=== PATIENT | female | born 2000 | race Caucasian/White ===

== ENCOUNTER → 2021-10-21 | Outpatient (CLI) | payer OTHER, SELFPAY ==
[2021-10-21 12:05] LABS: Vista UDS pH Range 4
[2021-10-21 12:29] LABS: Amphetamine Urine VISTA NEGATIVE (<1000 ng/mL); Barbiturate Urine VISTA NEGATIVE (< 200 ng/mL); Benzodiazepine Urine VISTA NEGATIVE (< 200 ng/mL); Cocaine Urine VISTA NEGATIVE (< 300 ng/mL); Ecstacy Urine VISTA NEGATIVE (< 500 ng/mL); Methadone Urine VISTA NEGATIVE (< 300 ng/mL); PCP Urine VISTA NEGATIVE (< 25 ng/mL); THC Urine VISTA NEGATIVE (< 50 ng/mL)
[2021-10-22 22:06] LABS: Chlamydia By Nucleic Acid AMP Negative (Negative)
[2021-10-22 22:33] LABS: Gonococcus By Nucleic Acid AMP Negative (Negative)
== END | disposition home or self-care (01) ==
LOC: LABSPEC 11:30
PROVIDERS: Visit Provider Obstetrics & Gynecology
DX: Z34.00 Encounter for supervision of normal first pregnancy, unspecified trimester (principal)
CPT/HCPCS: 80307; 87086; 87491; 87591

== ENCOUNTER → 2021-10-25 | Outpatient (CLI) | payer OTHER, SELFPAY ==
[2021-10-25 11:26] LABS: Absolute Lymphocyte Count 1.83 X10^3/uL (0.83-4.51); Absolute Neutrophil Count 3.2 X10^3/uL (2.0-7.7); Basophil# 0.03 X10^3/uL; Basophil% 0.5 % (0-1); Eosinophil# 0.13 X10^3/uL; Eosinophils% 2.3 % (0-5); Hematocrit 37.8 % (37-47); Hemoglobin 12.9 g/dL (12.0-15.0); Lymphocyte # 1.83 X10^3/ul (0.83-4.51); Lymphocyte % 32.6 % (19-41); Mean Corp Hgb Conc 34.1 g/dL (32-36); Mean Corpuscular Hgb 30.9 pg (27.0-32.0); Mean Corpuscular Volume 90.4 fL (81-99); Mean Platelet Vol. 10.1 fl (6.2-12.0); Monocyte# 0.45 X10^3/uL; NRBC Flagged by Analyzer 0 % (0-5); Neutrophil # 3.16 X10^3/uL (2.7-7.7); Neutrophil % 56.2 % (47-70); Platelet Count 255 K/mm3 (150-450); RBC Distribution Width CV 12.6 % (11.6-14.6); Red Blood Count 4.18 M/mm3 (4.2-5.4); White Blood Count 5.6 K/mm3 (4.4-11.0)
[2021-10-25 12:04] LABS: NATERA MAILED SPECIMEN
[2021-10-25 12:26] LABS: HIV - WCH Non-Reactive (Nonreactive); Hepatitis B Surface Antigen Non-Reactive (Nonreactive); Hepatitis C Antibody Non-Reactive (Nonreactive); Rubella IgG Reactive (Nonreactive); Syphilis Antibodies Non-reactive
== END | disposition home or self-care (01) ==
LOC: LAB 10:59
PROVIDERS: Referring Provider Obstetrics & Gynecology; Visit Provider Obstetrics & Gynecology
DX: Z34.00 Encounter for supervision of normal first pregnancy, unspecified trimester (principal)
CPT/HCPCS: 36415; 85025; 86703; 86762; 86780; 86803; 86850; 86900; 86901; 87340

== ENCOUNTER → 2022-02-11 | Outpatient (CLI) | payer OTHER, SELFPAY ==
[2022-02-11 11:41] LABS: Absolute Lymphocyte Count 1.81 X10^3/uL (0.83-4.51); Absolute Neutrophil Count 7.8 X10^3/uL (2.0-7.7); Basophil# 0.03 X10^3/uL; Basophil% 0.3 % (0-1); Eosinophil# 0.06 X10^3/uL; Eosinophils% 0.6 % (0-5); Hematocrit 33.5 % (37-47); Hemoglobin 11.7 g/dL (12.0-15.0); Lymphocyte # 1.81 X10^3/ul (0.83-4.51); Lymphocyte % 17.2 % (19-41); Mean Corp Hgb Conc 34.9 g/dL (32-36); Mean Corpuscular Hgb 31.8 pg (27.0-32.0); Mean Platelet Vol. 10.4 fl (6.2-12.0); Monocyte# 0.78 X10^3/uL; Monocyte% 7.4 % (0-10); NRBC Flagged by Analyzer 0 % (0-5); Neutrophil # 7.78 X10^3/uL (2.7-7.7); Platelet Count 219 K/mm3 (150-450); RBC Distribution Width CV 12.9 % (11.6-14.6); RBC Distribution Width SD 42.2 fl (35.1-43.9); Red Blood Count 3.68 M/mm3 (4.2-5.4); White Blood Count 10.5 K/mm3 (4.4-11.0)
[2022-02-11 12:00] LABS: Glucose Challenge Gest 1H 50g 83 mg/dL (70-140)
== END | disposition home or self-care (01) ==
LOC: LAB 11:20
PROVIDERS: Visit Provider Obstetrics & Gynecology
DX: Z34.00 Encounter for supervision of normal first pregnancy, unspecified trimester (principal)
CPT/HCPCS: 36415; 82950; 85025

== ENCOUNTER → 2022-04-25 | Outpatient (CLI) | payer OTHER, SELFPAY | END | disposition home or self-care (01) | PROVIDERS: Visit Provider Registered Nurse | DX: Z34.00 Encounter for supervision of normal first pregnancy, unspecified trimester (principal) | CPT/HCPCS: 87081 ==

== ENCOUNTER 2022-05-20 05:35 | Inpatient (IN) | payer OTHER, SELFPAY ==
[2022-05-20] VITALS (51 sets, daily range): BP systolic 106–162; BP diastolic 56–90; PULSE 65–248; TEMP 36.6–37.6; O2SAT 80–100; BMI 33.0
[2022-05-20] MEDS: Lactated Ringers 1,000 ML 50 ML IV (05:50)
[2022-05-20 06:12] LABS: Absolute Lymphocyte Count 2.16 X10^3/uL (0.83-4.51); Absolute Neutrophil Count 9.9 X10^3/uL (2.0-7.7); Basophil# 0.05 X10^3/uL; Basophil% 0.4 % (0-1); Eosinophil# 0.02 X10^3/uL; Eosinophils% 0.2 % (0-5); Hematocrit 35.1 % (37-47); Hemoglobin 11.4 g/dL (12.0-15.0); Lymphocyte # 2.16 X10^3/ul (0.83-4.51); Lymphocyte % 16.3 % (19-41); Mean Corp Hgb Conc 32.5 g/dL (32-36); Mean Corpuscular Hgb 28.4 pg (27.0-32.0); Mean Corpuscular Volume 87.3 fL (81-99); Mean Platelet Vol. 11.6 fl (6.2-12.0); Monocyte# 1.02 X10^3/uL; Monocyte% 7.7 % (0-10); NRBC Flagged by Analyzer 0 % (0-5); Neutrophil # 9.88 X10^3/uL (2.7-7.7); Neutrophil % 74.7 % (47-70); Platelet Count 218 K/mm3 (150-450); RBC Distribution Width CV 13.5 % (11.6-14.6); RBC Distribution Width SD 42.3 fl (35.1-43.9); Red Blood Count 4.02 M/mm3 (4.2-5.4); White Blood Count 13.2 K/mm3 (4.4-11.0)
--- NOTE | 2022-05-20 07:16 | HP.PCM.OB_ITS ---
HPI - General General Date of Admission: 05/20/22 HPI Narrative TALON FUNEZ, is a 22 F who presents IAL no vb lof good fm Maternal Data Information [place] Calculator Estimated Delivery Date Method Current WG Current Estimate 05/22/22 LMP (Certain) 39w 5d Other Estimates 05/22/22 Ultrasound #1 39w 5d PFSH PFSH Home Medications prenat.vits,td,fti-vlic-pjhhc 1 tab PO DAILY 10/11/21 [History Last Taken 05/20/22] Allergy/AdvReac Type Severity Reaction Status Date / Time No Known Allergies Allergy Verified 05/19/22 14:44 Family History Grandfather Diabetes Heart disease Myocardial infarction Hypertension Hyperlipidemia Grandmother A-fib Parkinson disease Hypertension Alzheimer disease Social History adopted: No household members: spouse and children number of children: 1 current occupational status: employed current occupation: [employer] pets and animals: Yes pets and animals: dog(s) Smoking Status: Never smoker alcohol intake: never substance use type: does not use do you feel safe at home: Yes additional social history: Spouse:Casey Linares foster child History 1 Elective abortions Hx Para 0 Spontaneous abortions Hx # Term Pregnancies Ectopic pregnancies Hx # Pregnancies Multiple births # of living children Visit Details Expected Delivery Route/Plan Labor Preferences- CB/BF classes: [recommended] labor support person: [Casey] labor intervention preferences: [] pain management options preferred: [] cut cord/dad catch: [] : [plans] PP control planned: [] discussed possible routes of delivery and associated risks: [] special requests: [] Plans Covid status: discussed Flu vaccine: discussed Tdap vaccine: completed Rhogam: [na] LARC form signed: completed Problem list reviewed and updated with the most current plan of care details and appropriate orders placed. Relevant counseling for the gestational age provided. Continue routine care and follow up unless otherwise noted in visit notes/problem list details OB Flowsheet Initial Weight: Not Recorded Date -?-?-?-?-?-?-?-?-?-?-?-?- EGA Weight BP Urine Prot -?-?-?-?-?-?-?-?-?-?-?-?- Glucose FHR FuHt Pres Dilation -?-?-?-?-?-?-?-?-?-?-?-?- Effaced St Visit Note 10/21/21 -?-?-?-?-?-?-?-?-?-?-?-?- 9w 4d 63.957 kg 118/70 -?-?-?-?-?-?-?-?-?-?-?-?- 175 -?-?-?-?-?-?-?-?-?-?-?-?- JV- CRL consiste nt with LMP 11/15/21 -?-?-?-?-?-?-?-?-?-?-?-?- 13w 1d 64.07 kg 120/76 Negativ e -?-?-?-?-?-?-?-?-?-?-?-?- Negative 150 -?-?-?-?-?-?-?-?-?-?-?-?- - no vb lof go od fm no regular ctx 12/16/21 -?-?-?-?-?-?-?-?-?-?-?-?- 17w 4d 68.209 kg 116/60 Negati ve -?-?-?-?-?-?-?-?-?-?-?-?- Negative 153 -?-?-?-?-?-?-?-?-?-?-?-?- -No VB, celestine holcomb. Doing well. Anatomy US 12/2001/10/22 -?-?-?-?-?-?-?-?-?-?-?-?- 21w 1d 69.91 kg 110/66 Negativ e -?-?-?-?-?-?-?-?-?-?-?-?- Negative 146 -?-?-?-?-?-?-?-?-?-?-?-?- -No VB, LOF. G ood FM. Nl anatomy scan 02/11/22 -?-?-?-?-?-?-?-?-?-?-?-?- 25w 5d 74.616 kg Negative -?-?-?-?-?-?-?-?--?-?-?-?- Negative 157 25 -?-?-?-?-?-?-?-?-?-?-?-?- JV- normal gluco al and cbc. Discussed flu and covid and patient declines. She may consider tdap next visit. 03/10/22 -?-?-?-?-?-?-?-?-?-?-?-?- 29w 4d 75.07 kg 122/76 Negativ e -?-?-?-?-?-?-?-?-?-?-?-?- Negative 160 29 -?-?-?-?-?-?-?-?-?-?-?-?- JV- tdap done to day. no complaints. JV- tdap done today. no comp laints. going on a baby candelario to [place] soon. 03/25/22 -?-?-?-?-?-?-?-?-?-?-?-?- 31w 5d 75.977 kg 130/76 Negati ve -?-?-?-?-?-?-?-?-?-?-?-?- Negative 140 32 -?-?-?-?-?-?-?-?-?-?-?-?- LC-doing well. n o vb,lof,ctx. good fm. normal 28 week labs. travel precautions provided-driving 15 hours to [place]- will use compression stockings. larc signed. 04/07/22 -?-?-?-?-?-?-?-?-?-?-?-?- 33w 4d 79.152 kg 134/71 Negati ve -?-?-?-?-?-?-?-?-?-?-?-?- Negative 160 34 -?-?-?-?-?-?-?-?-?-?-?-?- JV- no lof, vagi nal bleeding, or dec fm. no complaints other than some ruq tenderness. 04/20/22 -?-?-?-?-?-?-?-?-?-?-?-?- 35w 3d 81.703 kg 117/74 Negati ve -?-?-?-?-?-?-?-?-?-?-?-?- Negative 145 36 Cephalic -?-?-?-?-?-?-?-?-?-?-?-?- LC- no lof/vb/ct x. good fm. denies concerns. 04/25/22 -?-?-?-?-?-?-?-?-?-?-?-?- 36w 1d 82.611 kg 129/76 Negati ve -?-?-?-?-?-?-?-?-?-?-?-?- Negative 150 37 Cephalic 0 .5 -?-?-?-?-?-?-?-?-?-?-?-?- 30 -3 LC- no lof /vb/lof. good fm. denies concerns. LC- no lof/vb/lof. good fm. denies concerns. GBS collected today 05/04/22 -?-?-?-?-?-?-?-?-?-?-?-?- 37w 3d 84.368 kg 126/82 Negati ve -?-?-?-?-?-?-?-?-?-?-?-?- Negative 145 39 Cephalic -?-?-?-?-?-?-?-?-?-?-?-?- LC- no lof/vb/ct x. good fm. no concerns. 05/09/22 -?-?-?-?-?-?-?-?-?-?-?-?- 38w 1d 81.873 kg 134/74 Negati ve -?-?-?-?-?-?-?-?-?-?-?-?- Negative 140 39 Cephalic 2 -?-?-?-?-?-?-?-?-?-?-?-?- 80 -2 LC- no lof /vb/ctx. good fm. no concerns. cervix anterior and soft 05/19/22 -?-?-?-?-?-?-?-?-?-?-?-?- 39w 4d 83.631 kg 126/80 Negati ve -?-?-?-?-?-?-?-?-?-?-?-?- Negative 140 42 Cephalic 4 -?-?-?-?-?-?-?-?-?-?-?-?- 80 -2 SM- no vb lof good fm n oreuglar ctx membranes swept, growth US ordered for large FH, discussed IOL end of next week 05/20/22 -?-?-?-?-?-?-?-?-?-?-?-?- 39w 5d 81.817 kg 148/86 142/82 138/82 -?-?-?-?-?-?-?-?-?-?-?-?- -?-?-?-?-?-?-?-?-?-?-?-?- NST FHR Rate Baby A Baseline: 140 Variability:: Moderate Accelerations:: 15 x 15 Decelerations:: None NST Reactive:: Yes FHR Category:: Category I Uterine Activity:: q3-5 ROS Constitutional Constitutional: Reports systems reviewed and no addt'l complaints, except as documented ENT HEENT: Reports systems reviewed and no addt'l complaints, except as documented Cardiovascular Cardiovascular: Reports systems reviewed and no addt'l complaints, except as documented Respiratory/Chest Respiratory/Chest: Reports systems reviewed and no addt'l complaints, except as documented Gastrointestinal Gastrointestinal: Reports systems reviewed and no addt'l complaints, except as documented and nausea; Denies abdominal pain Genitourinary Genitourinary: Reports systems reviewed and no addt'l complaints, except as documented, contractions Details: present and frequency (regular ) and movement Details: present Musculoskeletal Musculoskeletal: Reports systems reviewed and no addt'l complaints, except as documented Integumentary Integumentary: Reports as per HPI Neurologic Neurologic: Reports systems reviewed and no addt'l complaints, except as documented Endocrine Endocrinology: Reports systems reviewed and no addt'l complaints, except as documented Vital Signs Vital Signs Vital Signs: 05/20/22 05:16 05/20/22 05:16 05/20/22 05:25 Temperature Temperature Source Pulse Rate 93 Blood Pressure 148/86 H 142/82 H BP Systolic 148 142 BP Diastolic 86 82 Pulse Ox 05/20/22 05:25 05/20/22 06:15 05/20/22 06:15 Temperature Temperature Source Pulse Rate 89 248 H Blood Pressure BP Systolic BP Diastolic Pulse Ox 80 05/20/22 06:15 05/20/22 06:15 05/20/22 06:15 Temperature Temperature Source Temporal Pulse Rate 91 Blood Pressure BP Systolic BP Diastolic Pulse Ox 97 05/20/22 06:15 Temperature 97.9 F Temperature Source Pulse Rate Blood Pressure BP Systolic BP Diastolic Pulse Ox Weight Weight: 81.817 kg Body Mass Index (BMI) 33.0 Physical Exam Const alert, oriented x3 and healthy appearing Constitutional Narrative: uncomfortable with contractions HEENT normocephalic and moist oral mucous membranes Head and Scalp: atraumatic Neck full ROM, no lymphadenopathy, supple and thyroid normal General: trachea midline Thyroid: thyroid normal Lymph Lymphatic: no lymphadenopathy noted Chest inspection of chest normal Resp normal respiratory effort Cardio regular rate GI normal to inspection, nondistended, normoactive bowel sounds, soft to palpation and non-tender Inspection: gravid external exam normal Bimanual Exam - Vag & Uterus: uterus non-tender Manual OB Exam: estimated gestational size appropriate, presentation cephalic, dilated, effaced and station Extremity normal to inspection General Extremity: Negative for edema Skin no rashes or lesions noted Neuro deep tendon reflexes 2+ bilaterally Motor Exam: strength 5/5 throughout and clonus absent Psych mental status grossly normal Labs Labs Labs: Blood Type AB POSITIVE Antibody Screen NEGATIVE Hct 35.1 % (37-47) L Hgb 11.4 g/dL (12.0-15.0) L Pap Smear Negative Syphilis Total Ab Non-reactive Rubella IgG Antibody Reactive (Nonreactive) Hep Bs Antigen Non-Reactive (Nonreactive) Chlamydia DNA ([facility]) Negative (Negative) Neisseria gonorrhoeae DNA ([facility]) Negative (Negative) HIV 1&2 Antibody Non-Reactive (Nonreactive) Glucose 1 Hr 50 gm 83 mg/dL (70-140) Assessment & Plan (1) Supervision of normal first : COMMENT: PRR [place]:05/22/22 girl John Sp: Casey (2) : QUALIFIERS: Weeks of gestation: 38 weeks Qualified Code(s): Z3A.38 - 38 weeks gestation of COMMENT: nl anatomy, NIPT low risk, neg carrier screen. (3) Uterine size-date discrepancy, third trimester: COMMENT: us ordered PLAN: Plan Patient presents IAL, plan expectant management for , arom clear fluid. Pain management: minimal intervention. GBS neg Management of any complications: none I have reviewed the [facility] and made any clinically relevant updates.
[2022-05-20 07:41] LABS: AST(SGOT) 18 U/L (15-37); Alanine Aminotransfer ALT/SGPT 17 U/L (13-56); Creatinine, Serum 0.64 mg/dL (0.55-1.02); EST Glomerular Filtration Rate 123 mL/min (>60); Est Glom Filt Rate - Afr Amer 149 mL/min (>60); Estimated Creatinine Clearance 108.13 ml/min; Uric Acid 4.8 mg/dL (2.6-6.0)
[2022-05-20 07:42] LABS: Protein, Urine (Random) 14.2 mg/dL (<11.9); Protein:Creat Ratio 284 mg/g CRE (0-200)
[2022-05-20] MEDS: LACTATED RINGERS 500 ML 999 ML IV ×2 (08:50→16:11)
[2022-05-20] MEDS: fentaNYL-bupivacaine (epidural) 100 ML BAG EPIDURAL ×2 (09:34→13:55)
--- NOTE | 2022-05-20 12:10 | PCM.PN.OB ---
Subjective Subjective comfortable with epidural. denies n/v/rectal pressure. Objective Data Objective Data Vital Signs: Vital Signs Temp Pulse BP Pulse Ox 98.1 F 86 119/75 100 05/20/22 11:57 05/20/22 11:57 05/20/22 11:57 05/20/22 11:57 Weight: 180 lb 6 oz Body Mass Index (BMI) 33.0 Intake & Output: Intake and Output for Last 24 Hours 05/18/22 05/19/22 05/20/22 23:59 23:59 23:59 Intake Total 512.5 / 512.5 Balance 512.5 / 512.5 Lab / Micro Data Attestation: I reviewed the patient's lab results. Result Diagrams: 05/20/22 05:50 05/20/22 05:50 Labs: Laboratory Results - last 24 hr 05/20/22 05:50: WBC 13.2 H, RBC 4.02 L, Hgb 11.4 L, Hct 35.1 L, MCV 87.3, MCH 28.4, MCHC 32.5, RDW Std Deviation 42.3, RDW Coeff of Kathy 13.5, Plt Count 218, MPV 11.6, Immature Gran % (Auto) 0.700, Neut % (Auto) 74.7 H, Lymph % (Auto) 16.3 L, [place] % (Auto) 7.7, Eos % (Auto) 0.2, Baso % (Auto) 0.4, Absolute Neuts (auto) 9.9 H, Absolute Lymphs (auto) 2.16, Nucleated RBC % 0 05/20/22 05:50: Blood Type AB POSITIVE, Antibody Screen NEGATIVE 05/20/22 05:50: U Random Total Protein 14.2 H, Urine Creatinine 50.00, Protein/Creatinin Ratio 284 H 05/20/22 05:50: Creatinine 0.64, Estim Creat Clear Calc 108.13, Est GFR (MDRD) Af Amer 149, Est GFR (MDRD) Non-Af 123, Uric Acid 4.8, AST 18, ALT 17 Physical Exam Const alert, oriented x3 and no apparent distress Resp normal respiratory effort and normal air movement GI soft to palpation and non-tender OB / External & Speculum: other +bloody show Manual OB Exam: dilated 9, effaced 100 and station 0 Uterus Palpation: Negative for uterus tender Amniotic Fluid: clear amniotic fluid Extremity normal to inspection Skin no rashes or lesions noted NST FHR Rate Baby A Baseline: 135 Variability:: Moderate Accelerations:: 15 x 15 Decelerations:: None NST Reactive:: Yes FHR Category:: Category I Uterine Activity:: q2-3minute, palp strong Assessment & Plan (1) Supervision of normal first : COMMENT: PRR [place]:05/22/22 girl John Sp: Casey (2) : QUALIFIERS: Weeks of gestation: 38 weeks Qualified Code(s): Z3A.38 - 38 weeks gestation of COMMENT: nl anatomy, NIPT low risk, neg carrier screen. (3) Spontaneous onset of labor: COMMENT: 39+5 AROM at 710 clear fluid, afebrile
[2022-05-20] MEDS: Lactated Ringers 1,000 ML 200 ML IV (13:56)
[2022-05-20] MEDS: Oxytocin 10 UNITS/ML Vial IM (17:20)
[2022-05-20] MEDS: Methylergonovine 0.2 MG/ML Ampul IM (17:25)
--- NOTE | 2022-05-20 17:30 | DCINST_ITS ---
Discharge Instructions Diet Discharge Diet: No restrictions Activity Discharge Activity: May Not Drive and May Shower May resume sexual activity in: 6 weeks Weight Bearing Status: Full weight bearing Dressing / Incision Call your doctor if your incision/area has: Sudden Increased Bleeding, Increased Pain/ Swelling and Foul Smelling Discharge Call your doctor if you observe: Fever of 101 or Higher, Numbness or Tingling, Change in Color, Inability to urinate, Inability to have a bowel movement, Using more than 1 pad per hour, Shortness of breath, Dizziness, Fainting spells, Chest pain, Calf discomfort and Uncontrolled pain Follow Up Care Please Follow Up With: Chantal Adkins CNM When: 6 weeks , please call office to make an appointment. Congratulations on the of your baby! Test Results: Test results from this visit will be discussed in further detail at your follow- up appointment, if applicable. Discharge Plan Admission Admit Date/Time: 05/20/22 05:35 Attending Provider: Carin Allen Primary Care Provider: Care Physician,Fariha Primary Discharge Orders/Prescriptions Prescriptions: No Action prenat.vits,td,imc-yhso-xsvkg Tablet 1 tab PO DAILY Referrals / Follow Up: Care Physician,No Primary [Primary Care Provider] - Disposition Disposition (needs filled in before D/C Order can be placed): Home, Self Care
--- NOTE | 2022-05-20 17:53 | EX.PCM.OBRPT ---
Assessment & Plan (1) Vacuum-assisted vaginal delivery: COMMENT: IAL, 39wk, vacuum for NRHR, girl:Iram. PETR Maternal Data Information [place] Calculator Estimated Delivery Date Method Current WG Current Estimate 05/22/22 LMP (Certain) 39w 5d Other Estimates 05/22/22 Ultrasound #1 39w 5d Vaginal Delivery Operative Information Date of Procedure: 05/20/22 Pre-Operative Diagnosis: IAL Post-Operative Diagnosis: same Surgery / Procedure Performed: Vacuum Assisted Vaginal Delivery Type of Anesthesia: Epidural Special Medications: none Estimated Blood Loss: 300 Fluids Replaced: crystalloid Findings Description of Procedure: Patient began pushing and developed tachycardia and recurrent late decels therfore the patient was counseled for a vacuum assisted delivery and agreed. vacuum applie in +3 station KARLO and with 2 pulls no pop offs duration 3 minuts, she delivered the head in the KARLO presentation. The head was delivered atraumatically and a loose nuchal cord ?1 was identified and the delivered through without complication. The anterior and posterior shoulders delivered without complication followed by the rest of the infant and the infant was placed on the maternal abdomen. Delayed cord clamping was employed for approximately 60 seconds. Cord was clamped and cut and gentle traction was applied to the cord and the placenta delivered spontaneously immediately following it was noted to be intact with three-vessel cord. The perineum and vagina were inspected and noted to have a second degree perineal laceration and a left vaginal laceration repaired with 3-0 rapide in the usual fashion. EBL was 300 and some atony treated with pitocin methergine and massage. Patient and tolerated delivery well. Presentation: KARLO Amniotic Membrane Rupture Type: Artificial Amniotic Fluid Description: Clear Placental Delivery Description: Spontaneous Placenta Disposition: [facility] Cord Vessel Description: 3 Vessels Cord Entanglement: None Delayed Cord Clamping: Yes Post Vaginal Delivery Medications Given After Delivery: IV Pitocin Episiotomy Description: None Laceration: Perineal Extension/lac, Vaginal Extension/lac and 2nd degree Complication Complications: None Procedures Urinary/Genital [id number]: [id number] [facility]
[2022-05-20] MEDS: 0.9% Saline Lock 10 ML Syringe IV (18:18)
[2022-05-20] MEDS: Ondansetron 4 MG/2 ML Vial IV (18:18)
[2022-05-20] MEDS: Acetaminophen 500 MG Tablet PO (18:18)
[2022-05-20] MEDS: Naproxen 500 MG Tablet PO (22:19)
[2022-05-21] VITALS (7 sets, daily range): BP systolic 95–133; BP diastolic 53–75; PULSE 65–94; RESP 16; TEMP 36.6–36.8; O2SAT 98–100
[2022-05-21] MEDS: Acetaminophen 500 MG Tablet 1000 MG PO ×3 (00:28→14:43)
--- NOTE | 2022-05-21 04:48 | PCM.PN.OB ---
Subjective Subjective Patient doing well without complaints. Tolerating PO. Ambulating and voiding without difficulty. feeding well. Denies chest pain, shortness of breath, calf pain/swelling, fevers, chills, lightheadedness. Objective Data Objective Data Vital Signs: Vital Signs Temp Pulse Resp BP Pulse Ox O2 Del Method 97.9 F 65 16 124/69 H 98 Room Air 05/21/22 00:30 05/21/22 00:30 05/21/22 00:30 05/21/22 00:30 05/21/22 00:30 05/21/22 00:30 Oxygen Delivery Method Room Air Weight: 81.817 kg Body Mass Index (BMI) 33.0 Intake & Output: Intake and Output for Last 24 Hours 05/19/22 05/20/22 05/21/22 23:59 23:59 23:59 Intake Total 2673.33 / 2673.33 Output Total 500 / 740 240 / 240 Balance 2173.33 / 1933.33 -240 / -240 Lab / Micro Data Result Diagrams: 05/20/22 05:50 05/20/22 05:50 Labs: Laboratory Results - last 24 hr 05/20/22 05:50: WBC 13.2 H, RBC 4.02 L, Hgb 11.4 L, Hct 35.1 L, MCV 87.3, MCH 28.4, MCHC 32.5, RDW Std Deviation 42.3, RDW Coeff of Kathy 13.5, Plt Count 218, MPV 11.6, Immature Gran % (Auto) 0.700, Neut % (Auto) 74.7 H, Lymph % (Auto) 16.3 L, [place] % (Auto) 7.7, Eos % (Auto) 0.2, Baso % (Auto) 0.4, Absolute Neuts (auto) 9.9 H, Absolute Lymphs (auto) 2.16, Nucleated RBC % 0 05/20/22 05:50: Blood Type AB POSITIVE, Antibody Screen NEGATIVE 05/20/22 05:50: U Random Total Protein 14.2 H, Urine Creatinine 50.00, Protein/Creatinin Ratio 284 H 05/20/22 05:50: Creatinine 0.64, Estim Creat Clear Calc 108.13, Est GFR (MDRD) Af Amer 149, Est GFR (MDRD) Non-Af 123, Uric Acid 4.8, AST 18, ALT 17 ROS Constitutional Constitutional: Reports systems reviewed and no addt'l complaints, except as documented Cardiovascular Cardiovascular: Reports systems reviewed and no addt'l complaints, except as documented Respiratory/Chest Respiratory/Chest: Reports systems reviewed and no addt'l complaints, except as documented Gastrointestinal Gastrointestinal: Reports systems reviewed and no addt'l complaints, except as documented Physical Exam Const alert, oriented x3 and no apparent distress HEENT Head and Scalp: atraumatic Resp normal respiratory effort GI soft to palpation and non-tender Bimanual Exam - Vag & Uterus: uterus non-tender Uterus Palpation: uterus fundus firm (below Umbilicus) Assessment & Plan (1) Vacuum-assisted vaginal delivery: COMMENT: IAL, 39wk, vacuum for NRHR, girl:Iram. [facility] PLAN: Plan s/p PPD # 1 1. routine post delivery care 2. breast feeding- support given 3. rh positive 4. rubella immune
[2022-05-21 05:40] LABS: Hematocrit 30.7 % (37-47); Hemoglobin 9.9 g/dL (12.0-15.0); Mean Corp Hgb Conc 32.2 g/dL (32-36); Mean Corpuscular Hgb 28.3 pg (27.0-32.0); Mean Corpuscular Volume 87.7 fL (81-99); Mean Platelet Vol. 11.5 fl (6.2-12.0); Platelet Count 173 K/mm3 (150-450); RBC Distribution Width CV 13.7 % (11.6-14.6); RBC Distribution Width SD 42.9 fl (35.1-43.9); White Blood Count 26.6 K/mm3 (4.4-11.0)
[2022-05-21] MEDS: Naproxen 500 MG Tablet PO ×2 (07:47→17:46)
[2022-05-21] MEDS: Prenatal Vits Tablet 1 TABLET PO (13:11)
[2022-05-21] MEDS: Senna/Docusate Sodium 1 Tablet PO (17:46)
== END 2022-05-21 18:00 | disposition home or self-care (01) | DRG 807 ==
LOC: WPOUT 05:35 → WP 05:37
PROVIDERS: Registered Nurse; Admitting Provider Obstetrics & Gynecology; Referring Provider Obstetrics & Gynecology; Visit Provider Obstetrics & Gynecology
DX: O76 Abnormality in fetal heart rate and rhythm complicating labor and delivery (principal); Z37.0 Single live birth; O26.843 Uterine size-date discrepancy, third trimester; O69.81X0 Labor and delivery complicated by cord around neck, without compression, not applicable or unspecified; O70.1 Second degree perineal laceration during delivery; O75.89 Other specified complications of labor and delivery; Z3A.39 39 weeks gestation of pregnancy
CPT/HCPCS: 59025; 59050; 82565; 82570; 84156; 84450; 84460; 84550; 85025; 85027; 86850; 86900; 86901; 99218; 99221; J7120; A4216; G0378; J2405

== ENCOUNTER → 2023-03-31 | Outpatient (CLI) | payer OTHER, SELFPAY ==
[2023-04-04 09:08] LABS: Chlamydia By Nucleic Acid AMP Negative (Negative); Gonococcus By Nucleic Acid AMP Negative (Negative)
== END | disposition home or self-care (01) ==
LOC: LABSPEC 16:22
PROVIDERS: Referring Provider Registered Nurse; Visit Provider Registered Nurse
DX: Z34.90 Encounter for supervision of normal pregnancy, unspecified, unspecified trimester (principal)
CPT/HCPCS: 87077; 87086; 87088; 87186; 87491; 87591

== ENCOUNTER → 2023-04-24 | Outpatient (CLI) | payer OTHER, SELFPAY ==
[2023-04-24 12:44] LABS: Absolute Lymphocyte Count 2.31 X10^3/uL (0.83-4.51); Absolute Neutrophil Count 5.5 X10^3/uL (2.0-7.7); Basophil# 0.03 X10^3/uL; Basophil% 0.4 % (0-1); Eosinophil# 0.04 X10^3/uL; Eosinophils% 0.5 % (0-5); Hemoglobin 13.2 g/dL (12.0-15.0); Lymphocyte # 2.31 X10^3/ul (0.83-4.51); Lymphocyte % 27.6 % (19-41); Mean Corp Hgb Conc 33.8 g/dL (32-36); Mean Corpuscular Hgb 30.6 pg (27.0-32.0); Mean Corpuscular Volume 90.3 fL (81-99); Mean Platelet Vol. 10.2 fl (6.2-12.0); Monocyte# 0.48 X10^3/uL; Monocyte% 5.7 % (0-10); NRBC Flagged by Analyzer 0 % (0-5); Neutrophil # 5.47 X10^3/uL (2.7-7.7); Neutrophil % 65.4 % (47-70); Platelet Count 285 K/mm3 (150-450); RBC Distribution Width CV 12.5 % (11.6-14.6); RBC Distribution Width SD 41.4 fl (35.1-43.9); Red Blood Count 4.32 M/mm3 (4.2-5.4); White Blood Count 8.4 K/mm3 (4.4-11.0)
[2023-04-24 12:56] LABS: NATERA MAILED SPECIMEN
[2023-04-24 13:59] LABS: HIV - WCH Non-Reactive (Nonreactive); Hepatitis B Surface Antigen Non-Reactive (Nonreactive); Hepatitis C Antibody Non-Reactive (Nonreactive); Rubella IgG Reactive (Nonreactive); Syphilis Antibodies Non-reactive
== END | disposition home or self-care (01) ==
LOC: LAB 11:53
PROVIDERS: Referring Provider Registered Nurse; Visit Provider Registered Nurse
DX: Z34.90 Encounter for supervision of normal pregnancy, unspecified, unspecified trimester (principal)
CPT/HCPCS: 36415; 85025; 86703; 86762; 86780; 86803; 86850; 86900; 86901; 87340

== ENCOUNTER → 2023-08-07 | Outpatient (CLI) | payer OTHER, SELFPAY ==
[2023-08-07 15:06] LABS: Absolute Lymphocyte Count 1.36 X10^3/uL (0.83-4.51); Basophil# 0.03 X10^3/uL; Basophil% 0.5 % (0-1); Eosinophil# 0.04 X10^3/uL; Eosinophils% 0.6 % (0-5); Hematocrit 33.8 % (37-47); Hemoglobin 11.1 g/dL (12.0-15.0); Lymphocyte # 1.36 X10^3/ul (0.83-4.51); Mean Corp Hgb Conc 32.8 g/dL (32-36); Mean Corpuscular Hgb 29.4 pg (27.0-32.0); Mean Corpuscular Volume 89.7 fL (81-99); Mean Platelet Vol. 10.4 fl (6.2-12.0); Monocyte# 0.71 X10^3/uL; Monocyte% 11.5 % (0-10); NRBC Flagged by Analyzer 0 % (0-5); Neutrophil # 4.01 X10^3/uL (2.7-7.7); Neutrophil % 64.9 % (47-70); Platelet Count 248 K/mm3 (150-450); RBC Distribution Width CV 13.2 % (11.6-14.6); RBC Distribution Width SD 42.8 fl (35.1-43.9); Red Blood Count 3.77 M/mm3 (4.2-5.4); White Blood Count 6.2 K/mm3 (4.4-11.0)
[2023-08-07 15:18] LABS: Glucose Challenge Gest 1H 50g 107 mg/dL (70-140)
[2023-08-07 17:13] LABS: HIV - WCH Non-Reactive (Nonreactive); Syphilis Antibodies Non-reactive
== END | disposition home or self-care (01) ==
LOC: LAB 14:33
PROVIDERS: Referring Provider Obstetrics & Gynecology; Visit Provider Obstetrics & Gynecology
DX: Z34.90 Encounter for supervision of normal pregnancy, unspecified, unspecified trimester (principal)
CPT/HCPCS: 36415; 82950; 85025; 86703; 86780

== ENCOUNTER 2023-10-18 18:36 | Inpatient (IN) | payer OTHER, SELFPAY ==
[2023-10-18] VITALS (24 sets, daily range): BP systolic 108–151; BP diastolic 54–91; PULSE 71–120; RESP 16–21; TEMP 36.7–37.5; O2SAT 98–100; BMI 33.0
[2023-10-18 18:34] LABS: ROM Internal Control Test YES-OK TO RESULT pt. (Internal QC); ROM Patient Test POSITIVE (Negative); Record Kit Lot#, ROM+ K1866
[2023-10-18] MEDS: Lactated Ringers 1,000 ML 200 ML IV (18:50)
[2023-10-18 19:21] LABS: Absolute Lymphocyte Count 1.63 X10^3/uL (0.83-4.51); Absolute Neutrophil Count 11.9 X10^3/uL (2.0-7.7); Basophil# 0.05 X10^3/uL; Basophil% 0.3 % (0-1); Eosinophil# 0.07 X10^3/uL; Eosinophils% 0.5 % (0-5); Hematocrit 34.6 % (37-47); Hemoglobin 11.1 g/dL (12.0-15.0); Lymphocyte # 1.63 X10^3/ul (0.83-4.51); Lymphocyte % 11.1 % (19-41); Mean Corp Hgb Conc 32.1 g/dL (32-36); Mean Corpuscular Hgb 26.9 pg (27.0-32.0); Mean Platelet Vol. 11.6 fl (6.2-12.0); Monocyte# 0.91 X10^3/uL; Monocyte% 6.2 % (0-10); NRBC Flagged by Analyzer 0 % (0-5); Neutrophil % 81.4 % (47-70); Platelet Count 231 K/mm3 (150-450); RBC Distribution Width CV 13.2 % (11.6-14.6); RBC Distribution Width SD 40.3 fl (35.1-43.9); Red Blood Count 4.12 M/mm3 (4.2-5.4); White Blood Count 14.6 K/mm3 (4.4-11.0)
[2023-10-18] MEDS: LACTATED RINGERS 500 ML 999 ML IV (19:26)
[2023-10-18 19:57] LABS: Syphilis Antibodies Non-reactive
[2023-10-18] MEDS: Penicillin G Pot 5,000,000 UNITS in 0.9% Normal Saline (100mL MB+) 100 ML 150 UNITS IV (20:07)
--- NOTE | 2023-10-18 20:21 | HP.PCM.OB_ITS ---
HPI - General General Date of Admission: 10/18/23 HPI Narrative TALON FUNEZ, is a 23 y/o @ 37 weeks 6 days who presents to L&D with contractions and ruptured membranes. She states that she thinks the water bag ruptured on her way to the hospital. She lives 45 minutes away. She is GBS positive. Upon arrival the triage nurse checked her cervix and called her exam 4.5/80/-1 and reported contractions every 2-3 minutes. The patient requested epidural and a snack. She denies bleeding or decreased movement. Maternal Data Information [place] Calculator Estimated Delivery Date Method Current WG Current Estimate 11/02/23 LMP (Certain) 37w 6d PFSH PFS Medical History Vacuum-assisted vaginal delivery Home Medications ?Medication ?Instructions ?Recorded ?Last Taken ?Type prenat.vits,td,yhf-jfoy-unpca 1 tab PO DAILY 10/11/21 05/20/22 History cholecalciferol (vitamin D3) 25 25 mcg PO DAILY 06/27/22 Unknown History mcg (1,000 unit) capsule famotidine 20 mg tablet (Pepcid) 20 mg PO DAILY #60 tabs 09/21/23 10/17/23 21:00 Rx Allergy/AdvReac Type Severity Reaction Status Date / Time No Known Allergies Allergy Verified 10/18/23 18:07 Family History Grandfather Diabetes Heart disease Myocardial infarction Hypertension Hyperlipidemia Grandmother A-fib Parkinson disease Hypertension Alzheimer disease Social History adopted: No household members: spouse and children number of children: 1 current occupational status: employed current occupation: [employer] current occupational exposures/hazards: No pets and animals: Yes pets and animals: dog(s) history of recent travel: No sexually active: Yes Smoking Status: Never smoker alcohol intake: current alcohol intake frequency: holidays/special occasions only details: not while substance use type: does not use well-balanced diet: daily or most days caffeine: No eating out: 1-3 times/week during the past year weight has: remained stable what type of physical activity do you participate in: walking and weight training frequency: 1-2 times per week duration: 30-45 minutes/day cookie/evangelical: Restorationism seatbelt use: always do you feel safe at home: Yes additional social history: Spouse:Casey 1 foster child History 2 Elective abortions Hx Para 1 Spontaneous abortions Hx # Term Pregnancies 1 Ectopic pregnancies Hx # Pregnancies Multiple births # of living children 1 Past Pregnancies Del. Date Name GA/Weeks Outcome Route Bth Weight Infant Gen Labor Lgth Anesthesia Del Locatn Provider FOB 05/20/22 John 39 live - full term vacuum 7lbs 14oz Female [facility] Alejandro Peña Delivery Date: 05/20/22 Last Updated by: Kristina Resendez Vacuum NR Visit Details Expected Delivery Route/Plan Labor Preferences- CB/BF classes: no labor support person: Elbert labor intervention preferences: [] pain management options preferred: epidural if needed cut cord/dad catch: cord : yes PP control planned: discussed discussed possible routes of delivery and associated risks: [] special requests: [] Plans Covid status: [] Flu vaccine: declined Tdap vaccine: declines Rhogam: na LARC form signed: yes Problem list reviewed and updated with the most current plan of care details and appropriate orders placed. Relevant counseling for the gestational age provided. Continue routine care and follow up unless otherwise noted in visit notes/problem list details OB Flowsheet Initial Weight: Not Recorded Date -?-?-?-?-?-?-?-?-?-?-?-?- EGA Weight BP Urine Prot -?-?-?-?-?-?--?-?-?-?-?-?- Glucose FHR FuHt Pres Dilation -?-?-?-?-?-?-?-?-?-?-?-?- Effaced St Visit Note 03/31/23 -?-?-?-?-?-?-?-?-?-?-?-?- 9w 1d 150 lb 4 oz 124/76 -?-?-?-?-?-?-?-?-?-?-?-?- 180 -?-?-?-?-?-?-?-?-?-?-?-?- KW- CRL cons wit h dates. wants nipt. doing well 04/24/23 -?-?-?-?-?-?-?-?-?-?-?-?- 12w 4d 150 lb 4 oz 104/60 Nega tive -?-?-?-?-?-?-?-?-?-?-?-?- Negative 165 -?-?-?-?-?-?-?-?-?-?-?-?- LC- no vb/crampi ng. declines afp. getting nob labs today. 05/29/23 -?-?-?-?-?-?-?-?-?-?-?-?- 17w 4d 154 lb 6 oz 115/74 Nega tive -?-?-?-?-?-?-?-?-?-?-?-?- Negative 150 -?-?--?-?-?-?-?-?-?-?-?-?- SM- no vb lof cr amping, going on a cruise!! 06/29/23 -?-?-?-?-?-?-?-?-?-?-?-?- 22w 0d 162 lb 107/71 -?-?-?-?-?-?-?-?-?-?-?-?- 145 22 -?-?-?-?-?-?-?-?-?-?-?-?- Sm- no vb lof go od fm no reuglar ctx 07/28/23 -?-?-?-?-?-?-?-?-?-?-?-?- 26w 1d 167 lb 6 oz 108/69 Nega tive -?-?-?-?-?-?-?-?-?-?-?-?- Negative 135 27 -?-?-?-?-?-?-?-?-?-?-?-?- JV- no lof, vagi nal bleeding, or cramping. no complaints. plan tdap and gct next visit. 08/07/23 -?-?-?-?-?-?-?-?-?-?-?-?- 27w 4d 172 lb 2 oz 116/72 Nega tive -?-?-?-?-?-?-?-?-?-?-?-?- Negative 135 28 -?-?-?-?-?-?-?-?-?-?-?-?- LC- no vb/ctx/lo f.good fm. passed glucose!! 08/21/23 -?-?-?-?-?-?-?-?-?-?-?-?- 29w 4d 173 lb 6 oz 122/68 Nega tive -?-?-?-?-?-?-?-?-?-?-?-?- Negative 131 29 -?-?-?-?-?-?-?-?-?-?-?-?- MH-No VB,LOF. Go od FM. Denies concerns. Declines tdap. 09/07/23 -?-?-?-?-?-?-?-?-?-?-?-?- 32w 0d 175 lb 110/73 -?-?-?-?-?-?-?-?-?-?-?-?- 140 33 -?-?-?-?-?-?-?-?-?-?-?-?- SM- no vb lof go od fm no regular ctx 09/21/23 -?-?-?-?-?-?-?-?-?-?-?-?- 34w 0d 177 lb 6 oz 113/79 Nega tive -?-?-?-?-?-?-?-?-?-?-?-?- Negative 135 35 -?-?-?-?-?-?-?-?-?-?-?-?- KW- no vb/lof/ct x. good fm. pepcid for acid reflux. 10/02/23 -?-?-?-?-?-?-?-?-?-?-?-?- 35w 4d 183 lb 118/64 Negative -?-?-?-?-?-?-?-?-?-?-?-?- Negative 138 36 Cephalic -?-?-?-?-?-?-?-?-?-?-?-?- MH-No VB, LOF. G ood FM. Reflux better with pepcid 10/10/23 -?-?-?-?-?-?-?-?-?-?-?-?- 36w 5d 185 lb 114/78 -?-?-?-?-?-?-?-?-?-?-?-?- 144 38 Cephalic 3 -?-?-?-?-?-?-?-?-?-?-?-?- 50 -3 KW- no vb/ lof/ctx. good fm. GBS positive. labor precautions. ROS Constitutional Constitutional: Denies change in weight, fatigue, fever(s), headache(s), poor appetite or weakness Eyes Eyes: Denies blurry vision, change in vision, seeing flashes or spots in vision ENT HEENT: Denies dizziness, headache(s), loss taste/smell or sore throat Cardiovascular Cardiovascular: Denies chest pain, dizziness, dyspnea, irregular heart rhythm, leg edema, palpitations, rapid heart rate or vomiting Respiratory/Chest Respiratory/Chest: Denies chest tightness, cough, dyspnea or breast pain Gastrointestinal Gastrointestinal: Denies abdominal pain, anorexia, constipation, cramping, diarrhea, hemorrhoids, vomiting or weight changes Genitourinary Genitourinary: Denies dysuria, flank pain, genital lesions, genital pain, urinary frequency or urinary urgency Musculoskeletal Musculoskeletal: Denies back pain, difficulty walking, joint pain, limited range of motion, muscle cramps or numbness Integumentary Integumentary: Denies lesions or unusual bruising Neurologic Neurologic: Denies abnormal movements, abnormal speech, dizziness, numbness, seizure-like activity or syncope Psychiatric Psychiatric: Denies anxiety, behavioral changes, change in appetite, change in libido, cognitive impairment, confusion, depression, difficulty concentrating, hallucinations or suicidal thoughts Endocrine Endocrinology: Denies excessive sweating, polydipsia or polyuria Hematologic/Lymphatic Hematologic/Lymphatic: Denies easy bleeding, easy bruising or lymphadenopathy Allergic/Immunologic Allergic/Immunologic: Denies itchy eyes, lip swelling, seasonal rhinorrhea, rhinitis, throat swelling, tongue swelling, eczemia, wheezing or asthma Vital Signs Vital Signs Vital Signs: 10/18/23 18:00 10/18/23 18:00 10/18/23 18:00 Temperature Temperature Source Temporal Pulse Rate 94 Respiratory Rate Blood Pressure 121/72 H BP Systolic 121 BP Diastolic 72 Pulse Ox 10/18/23 18:00 10/18/23 18:00 10/18/23 20:13 Temperature 98.0 F Temperature Source Pulse Rate Respiratory Rate 16 Blood Pressure 137/84 H BP Systolic 137 BP Diastolic 84 Pulse Ox 10/18/23 20:13 10/18/23 20:13 10/18/23 20:13 Temperature Temperature Source Pulse Rate 94 93 Respiratory Rate Blood Pressure BP Systolic BP Diastolic Pulse Ox 100 10/18/23 20:18 10/18/23 20:18 10/18/23 20:19 Temperature Temperature Source Pulse Rate 88 Respiratory Rate Blood Pressure 137/91 H BP Systolic 137 BP Diastolic 91 Pulse Ox 100 10/18/23 20:19 Temperature Temperature Source Pulse Rate 98 Respiratory Rate Blood Pressure BP Systolic BP Diastolic Pulse Ox Weight Weight: 186 lb 8.177 oz Body Mass Index (BMI) 33.0 Physical Exam Const alert, oriented x3, no apparent distress and healthy appearing General Appearance: cooperative; Negative for anxious HEENT normocephalic Face and Sinus: normal facial exam Eyes EOMs intact bilaterally and no scleral icterus General Eye: normal appearance of both eyes Neck full ROM and supple Lymph Lymphatic: no lymphadenopathy noted Chest Chest: abnormal inspection of the chest Resp normal respiratory effort Effort and Inspection: able to speak in complete sentences Cardio regular rate GI soft to palpation and non-tender Inspection: gravid Palpation: soft; Negative for tender external exam normal Amniotic Fluid: ROM+plus Back/Spine no CVA tenderness Extremity normal to inspection, full ROM and no clubbing, cyanosis or edema General Extremity: Negative for calf tenderness or edema Skin Lesions: no lesions Rashes: no rashes Psych mental status grossly normal Labs Labs Labs: Blood Type AB POSITIVE Antibody Screen NEGATIVE Hct 34.6 % (37-47) L Hgb 11.1 g/dL (12.0-15.0) L Pap Smear Negative Syphilis Total Ab Non-reactive Rubella IgG Antibody Reactive (Nonreactive) Hep Bs Antigen Non-Reactive (Nonreactive) Hepatitis C Antibody Non-Reactive (Nonreactive) Chlamydia DNA ([place]) Negative (Negative) N.gonorrhoeae DNA ([place]) Negative (Negative) HIV 1&2 Antibody Non-Reactive (Nonreactive) Glucose 1 Hr 50 gm 107 mg/dL (70-140) Rhogam given: No Assessment & Plan (1) Acid reflux: QUALIFIERS: Esophagitis presence: without esophagitis Qualified Code(s): K21.9 - Gastro-esophageal reflux disease without esophagitis (2) GBS (group B streptococcus) UTI complicating : QUALIFIERS: Trimester: third trimester Qualified Code(s): O23.43 - Unspecified infection of urinary tract in , third trimester; B95.1 - Streptococcus, group B, as the cause of diseases classified elsewhere COMMENT: treatment in labor (3) Supervision of normal : QUALIFIERS: Normal : other normal Trimester: third trimester Qualified Code(s): Z34.83 - Encounter for supervision of other normal , third trimester COMMENT: PRR , [place] 11/02/23 boy PC John Casey (4) : QUALIFIERS: Weeks of gestation: 36 weeks Qualified Code(s): Z3A.36 - 36 weeks gestation of COMMENT: NIPT low risk, carrier and ntd screening declined. nl anatomy PLAN: Plan Patient presents IAL, plan expectant management for , pitocin/AROM forebag PRN if needed. Pain management: plans epidural. GBS positive plan IV PCN. Management of any complications: none I have reviewed the [facility] and made any clinically relevant updates.
[2023-10-18] MEDS: fentaNYL-bupivacaine (epidural) 100 ML BAG EPIDURAL (20:37)
[2023-10-18] MEDS: Ondansetron 4 MG/2 ML Vial IV (20:50)
[2023-10-18] MEDS: Oxytocin 10 UNITS/ML Vial IM (22:35)
--- NOTE | 2023-10-18 22:45 | EX.PCM.OBRPT ---
Assessment & Plan (1) Acid reflux: QUALIFIERS: Esophagitis presence: without esophagitis Qualified Code(s): K21.9 - Gastro-esophageal reflux disease without esophagitis (2) GBS (group B streptococcus) UTI complicating : QUALIFIERS: Trimester: third trimester Qualified Code(s): O23.43 - Unspecified infection of urinary tract in , third trimester; B95.1 - Streptococcus, group B, as the cause of diseases classified elsewhere COMMENT: treatment in labor (3) Supervision of normal : QUALIFIERS: Normal : other normal Trimester: third trimester Qualified Code(s): Z34.83 - Encounter for supervision of other normal , third trimester COMMENT: PRR , [place] 11/02/23 boy TASHI Lopez Casey (4) : QUALIFIERS: Weeks of gestation: 36 weeks Qualified Code(s): Z3A.36 - 36 weeks gestation of COMMENT: NIPT low risk, carrier and ntd screening declined. nl anatomy Maternal Data Information [place] Calculator Estimated Delivery Date Method Current WG Current Estimate 11/02/23 LMP (Certain) 37w 6d Final [place] Source: LMP Gestational age: 37 weeks 6 days Vaginal Delivery Maternal Presentation Maternal Presentation: Active Labor Operative Information Date of Procedure: 10/18/23 Pre-Operative Diagnosis: 23 y/o @ 37 weeks 6 days, SROM and active labor Post-Operative Diagnosis: 23 y/o @ 37 weeks 6 days, SROM and active labor Surgery / Procedure Performed: Spontaneous Vaginal Delivery Type of Anesthesia: Epidural Anesthesiologist: Epifanio Quiroz Drain: Greenberg to straight drain Estimated Blood Loss: 100cc Time of Delivery: 22:31 Findings Description of Procedure: Patient began pushing and delivered the head in the [place] presentation. The head was delivered atraumatically. The anterior and posterior shoulders delivered without complication followed by the rest of the and the was placed on the maternal abdomen. Delayed cord clamping was employed for approximately 60 seconds. Cord was clamped and cut and gentle traction was applied to the cord and the placenta delivered spontaneously immediately following it was noted to be intact with three-vessel cord. The perineum and vagina were inspected and noted to be intact. There was a small periurethral tear that was reapproximated with a 3-0 vicryl rapide suture in a figure of eight fashion. EBL was 100 cc. Patient and tolerated delivery well. Presentation: Vertex Amniotic Membrane Rupture Type: Spontaneous Amniotic Fluid Description: Clear Placental Delivery Description: Spontaneous Placenta Disposition: [facility] Cord Vessel Description: 3 Vessels Cord Entanglement: Around neck x 1, loose Nuchal Cord Compression: Without compression A Gender: Male (1 minute): 9 (5 minute): 9 Delayed Cord Clamping: Yes Post Vaginal Delivery Medications Given After Delivery: IM Pitocin Episiotomy Description: None Laceration: None (no perineal) and Periurethral Extnsion/lac Complication Complications: None Multi Select Codes Urinary/Genital Urinary/Genital CPT Codes: 87167 Vaginal Delivery [facility]
--- NOTE | 2023-10-18 22:49 | DCINST_ITS ---
Discharge Instructions Diet Discharge Diet: No restrictions Activity Discharge Activity: Return to Normal Activity, May Not Drive (while taking narcotic pain medications.) and May Shower May resume sexual activity in: 4-6 weeks Dressing / Incision Call your doctor if your incision/area has: Continuous Slow Oozing, Sudden Increased Bleeding, Increased Pain/ Swelling, Increased Redness and Foul Smelling Discharge Follow Up Care Please Follow Up With: Amirah Russell, When: Call [phone] to make an appointment with your doctor in 6 weeks. If you had elevated blood pressure or 4th degree laceration, you will need to be seen in 2 weeks. Test Results: Test results from this visit will be discussed in further detail at your follow- up appointment, if applicable. Discharge Plan Admission Admit Date/Time: 10/18/23 18:36 Attending Provider: Amirah Russell Primary Care Provider: Care Physician,Fariha Primary Discharge Orders/Prescriptions Prescriptions: No Action prenat.vits,td,[id number] Tablet 1 tab PO DAILY cholecalciferol (vitamin D3) 25 mcg (1,000 unit) capsule 25 mcg PO DAILY famotidine [Pepcid] 20 mg tablet 20 mg PO DAILY Qty: 60 0RF Referrals / Follow Up: Care Physician,No Primary [Primary Care Provider] -
[2023-10-18] MEDS: Oxytocin 15 Units/NS 250ml 15 UNITS/250 ML IV.SOLN 83 UNITS IV (23:20)
[2023-10-19] VITALS (16 sets, daily range): BP systolic 100–124; BP diastolic 55–81; PULSE 62–89; RESP 16–18; TEMP 36.2–37.2; O2SAT 97–100
[2023-10-19] MEDS: 0.9% Saline Lock 10 ML Syringe IV (02:22)
[2023-10-19] MEDS: Ibuprofen 600 MG Tablet PO ×3 (06:18→19:32)
[2023-10-19] MEDS: Acetaminophen 500 MG Tablet 1000 MG PO ×3 (06:18→19:33)
--- NOTE | 2023-10-19 16:53 | PN.OBGYN_ITS ---
Subjective Subjective Patient doing well without complaints. Tolerating PO. Ambulating and voiding without difficulty. feeding well. Denies chest pain, shortness of breath, calf pain/swelling, fevers, chills, lightheadedness. Objective Data Objective Data Vital Signs: Vital Signs Temp Pulse Resp BP Pulse Ox O2 Del Method 97.2 F L 72 16 116/66 97 Room Air 10/19/23 16:00 10/19/23 16:04 10/19/23 16:00 10/19/23 16:04 10/19/23 09:06 10/19/23 12:14 Oxygen Delivery Method Room Air Weight: 186 lb 8.177 oz Body Mass Index (BMI) 33.0 Intake & Output: Intake and Output for Last 24 Hours 10/17/23 10/18/23 10/19/23 23:59 23:59 23:59 Intake Total 1580.25 / 1580.25 250 / 250 Output Total 300 / 300 1350 / 1350 Balance 1280.25 / 1280.25 -1100 / -1100 Lab / Micro Data 10/18/23 18:50 Labs: Laboratory Results - last 24 hr 10/18/23 18:10: Vag Amniotic Fld Detect POSITIVE H 10/18/23 18:50: WBC 14.6 H, RBC 4.12 L, Hgb 11.1 L, Hct 34.6 L, MCV 84.0, MCH 26.9 L, MCHC 32.1, RDW Std Deviation 40.3, RDW Coeff of Kathy 13.2, Plt Count 231, MPV 11.6, Immature Gran % (Auto) 0.500, Neut % (Auto) 81.4 H, Lymph % (Auto) 11.1 L, Mccracken % (Auto) 6.2, Eos % (Auto) 0.5, Baso % (Auto) 0.3, Absolute Neuts (auto) 11.9 H, Absolute Lymphs (auto) 1.63, Nucleated RBC % 0, Syphilis Total Ab Non-reactive, Blood Type AB POSITIVE, Antibody Screen NEGATIVE ROS Constitutional Constitutional: Reports systems reviewed and no addt'l complaints, except as documented Cardiovascular Cardiovascular: Reports systems reviewed and no addt'l complaints, except as documented Respiratory/Chest Respiratory/Chest: Reports systems reviewed and no addt'l complaints, except as documented Gastrointestinal Gastrointestinal: Reports systems reviewed and no addt'l complaints, except as documented Physical Exam Const alert, oriented x3 and no apparent distress HEENT Head and Scalp: atraumatic Resp normal respiratory effort GI soft to palpation and non-tender Bimanual Exam - Vag & Uterus: uterus non-tender Uterus Palpation: uterus fundus firm (below Umbilicus) Assessment & Plan (1) : QUALIFIERS: Weeks of gestation: 36 weeks Qualified Code(s): Z 3A.36 - 36 weeks gestation of COMMENT: NIPT low risk, carrier and ntd screening declined. nl anatomy (2) Supervision of normal : QUALIFIERS: Normal : other normal T rimester: third trimester Qualified Code(s): Z34.83 - Encounter for supervision of other normal , third trimester COMMENT: PRR , [place] 11/02/23 boy PC John Casey (3) GBS (group B streptococcus) UTI complicating : QUALIFIERS: Trimester: third trimester Qualified Code(s): O23.43 - Unspecified infection of urinary tract in , third trimester; B95.1 - Streptococcus, group B, as the cause of diseases classified elsewhere COMMENT: treatment in labor (4) Vaginal delivery: PLAN: Plan s/p PPD # 1 1. routine post delivery care 2. breast feeding- support given 3. rh positive 4. rubella immune
[2023-10-20] MEDS: Ibuprofen 600 MG Tablet PO ×2 (02:33→08:22)
[2023-10-20] MEDS: Acetaminophen 500 MG Tablet 1000 MG PO ×2 (02:34→08:21)
[2023-10-20 02:40] VITALS: BP 118/69; PULSE 76; PULSE 79; RESP 16; TEMP 36.5; O2SAT 98; O2SAT 99
--- NOTE | 2023-10-20 08:05 | PCM.PN.OB ---
Subjective Subjective Patient doing well without complaints. Tolerating PO. Ambulating and voiding without difficulty. feeding well. Denies chest pain, shortness of breath, calf pain/swelling, fevers, chills, lightheadedness. Objective Data Objective Data Vital Signs: Vital Signs Temp Pulse Resp BP Pulse Ox O2 Del Method 97.7 F L 76 16 118/69 99 Room Air 10/20/23 02:40 10/20/23 02:40 10/20/23 02:40 10/20/23 02:40 10/20/23 02:40 10/20/23 02:40 Oxygen Delivery Method Room Air Weight: 186 lb 8.177 oz Body Mass Index (BMI) 33.0 Intake & Output: Intake and Output for Last 24 Hours 10/18/23 10/19/23 10/20/23 23:59 23:59 23:59 Intake Total 1580.25 / 1580.25 250 / 250 Output Total 300 / 300 1350 / 1350 Balance 1280.25 / 1280.25 -1100 / -1100 Lab / Micro Data 10/18/23 18:50 ROS Constitutional Constitutional: Reports systems reviewed and no addt'l complaints, except as documented Cardiovascular Cardiovascular: Reports systems reviewed and no addt'l complaints, except as documented Respiratory/Chest Respiratory/Chest: Reports systems reviewed and no addt'l complaints, except as documented Gastrointestinal Gastrointestinal: Reports systems reviewed and no addt'l complaints, except as documented Physical Exam Const alert, oriented x3 and no apparent distress HEENT Head and Scalp: atraumatic Resp normal respiratory effort GI soft to palpation and non-tender Bimanual Exam - Vag & Uterus: uterus non-tender Uterus Palpation: uterus fundus firm (below Umbilicus) Assessment & Plan (1) Vaginal delivery: PLAN: Plan s/p PPD # 2 1. routine post delivery care 2. breast feeding- support given 3. rh positive 4. rubella immune
[2023-10-20 08:10] VITALS: BP 115/72; PULSE 62; PULSE 68; PULSE 75; RESP 16; TEMP 36.4; O2SAT 81; O2SAT 98; O2SAT 99
[2023-10-20 09:41] VITALS: RESP 16
== END 2023-10-20 10:55 | disposition home or self-care (01) | DRG 807 ==
LOC: WPOUT 18:39 → WP 18:39
PROVIDERS: Admitting Provider Obstetrics & Gynecology; Referring Provider Obstetrics & Gynecology; Visit Provider Obstetrics & Gynecology
DX: O42.02 Full-term premature rupture of membranes, onset of labor within 24 hours of rupture (principal); Z37.0 Single live birth; K21.9 Gastro-esophageal reflux disease without esophagitis; O69.81X0 Labor and delivery complicated by cord around neck, without compression, not applicable or unspecified; O99.824 Streptococcus B carrier state complicating childbirth; Z3A.37 37 weeks gestation of pregnancy; O99.62 Diseases of the digestive system complicating childbirth; O71.82 Other specified trauma to perineum and vulva; Z79.899 Other long term (current) drug therapy; Z87.59 Personal history of other complications of pregnancy, childbirth and the puerperium
CPT/HCPCS: 59025; 59050; 84112; 85025; 86780; 86850; 86900; 86901; 99221; J7120; A4216; G0378; J2405

== ENCOUNTER → 2023-11-29 | Outpatient (CLI) | payer OTHER, SELFPAY ==
[2023-12-05 16:35] LABS: HPV Reflexed? NOT INDICATED
== END | disposition home or self-care (01) ==
LOC: LABSPEC 12:13
PROVIDERS: Referring Provider Nurse Practitioner Women's Health; Visit Provider Nurse Practitioner Women's Health
DX: Z12.4 Encounter for screening for malignant neoplasm of cervix (principal)
CPT/HCPCS: 88175; G0145